=== PATIENT | female | born 1975 | race Hispanic/Latino ===

== ENCOUNTER 2017-02-21 22:44 | Emergency (ER) | payer MEDICARE ==
[2017-02-21 23:00] VITALS: BP 136/79
[2017-02-22] LABS: Bilirubin,Urine NEG (Negative); Blood,Urine SM (Negative); Ketones,Urine NEG (Negative); Leukocyte Esterase,Urine NEG (Negative); Mucus,Urine FEW /HPF; Nitrite,Urine NEG (Negative); Protein,Urine <15 mg/dL mg/dL (Negative); Urobilinogen,Urine < 2.0 mg/dL (<2.0)
--- NOTE | 2017-02-25 00:57 | ED Elopement Review ---
ED Pt Elopement review - Results review Lab results: Laboratory Tests 02/21/17 23:27 Urine Color Straw Urine Turbidity Clear Urine pH 7.0 Ur Specific [place] 1.008 Urine Protein <15 mg/dl Urine Glucose (UA) Neg Urine Ketones Neg Urine Blood Sm Urine Nitrite Neg Ur Reducing Substances Not Reportable Urine Bilirubin Neg Urine Ictotest Not Reportable Urine Urobilinogen < 2.0 Ur Leukocyte Esterase Neg Urine WBC (Auto) 0.0 Urine RBC (Auto) 3.0 U Epithel Cells (Auto) 1.0 Urine Mucus Few Urine HCG, Qual Negative - Call Back decision Pt Call Back Decision: Pt to F/U with PMD
== END 2017-02-22 03:30 | disposition left against medical advice (07) ==
LOC: ED 22:44
DX: N89.8 Other specified noninflammatory disorders of vagina (principal); R10.30 Lower abdominal pain, unspecified; Z53.21 Procedure and treatment not carried out due to patient leaving prior to being seen by health care provider
CPT/HCPCS: 81001; 81025

== ENCOUNTER 2017-02-24 16:06 | Emergency (ER) | payer MEDICARE ==
[2017-02-24 16:14] VITALS: BP 127/84
[2017-02-24 17:11] LABS: Bilirubin,Urine NEG (Negative); Blood,Urine MOD (Negative); Ketones,Urine NEG (Negative); Leukocyte Esterase,Urine NEG (Negative); Mucus,Urine FEW /HPF; Nitrite,Urine NEG (Negative); Protein,Urine <15 mg/dL mg/dL (Negative); Urobilinogen,Urine < 2.0 mg/dL (<2.0); WBC,Urine < 1.0 /HPF (0.0-6.0)
--- NOTE | 2017-02-24 17:47 | Emergency Department Report ---
ED Female HPI - General Chief complaint: Urogenital-Female Stated complaint: VAG DISCHARGE W/ ODOR Source: patient Mode of arrival: Ambulatory Limitations: No Limitations - History of Present Illness Initial comments: Patient reports vaginal discharge with a foul odor for eight days. Also, inquiring about strong pain medications for chronic DJD that triggers headaches , not relieved with NSAIDS. Patient is awaiting an appointment for pain management clinic MD Complaint: vaginal discharge Onset/Timin -: days(s) Location: suprapubic Radiation: non-radiating Severity: severe Severity scale (0 -10): 10 Quality: cramping Consistency: constant Improves with: none Worsens with: intercourse Are you Now?: No Last Menstrual Period: 02/06/17 EDC: 11/13/17 Associated Symptoms: vaginal discharge. denies: vaginal bleeding, abdominal pain, nausea/vomiting, fever/chills, headaches, loss of appetite, dysuria, hematuria, rash, seizure, shortness of breath, syncope, weakness - Related Data Sexually active: No Home Medications Medication Instructions Recorded Confirmed Last Taken Citalopram Hydrobromide [Celexa] 40 mg PO DAILY 06/10/13 06/10/13 06/10/13 11:45 risperiDONE [Risperdal] 2 mg PO QDAY 06/10/13 06/10/13 06/09/13 21:00 Previous Rx's Medication Instructions Recorded Last Taken Type Ibuprofen [Motrin] 800 mg PO TID PRN #20 tablet 08/11/13 Unknown Rx metroNIDAZOLE [Flagyl TAB] 500 mg PO BID #20 tablet 08/11/13 Unknown Rx Fluconazole [Diflucan] 150 mg PO QDAY #1 tablet 12/29/13 Unknown Rx metroNIDAZOLE [Flagyl] 500 mg PO Q12HR #14 tab 02/24/17 Unknown Rx Allergies Allergy/AdvReac Type Severity Reaction Status Date / Time ketorolac tromethamine Allergy Unknown Verified 11/08/13 23:01 [From Toradol] ED Review of Systems ROS: Stated complaint: VAG DISCHARGE W/ ODOR Other details as noted in HPI Constitutional: denies: chills, diaphoresis, fever, malaise Respiratory: denies: cough, orthopnea Cardiovascular: denies: chest pain, palpitations, dyspnea on exertion, orthopnea , edema, syncope, paroxysmal nocturnal dyspnea Gastrointestinal: denies: abdominal pain, nausea, vomiting, diarrhea, constipation, hematemesis, melena, hematochezia Genitourinary: discharge. denies: urgency, dysuria, frequency, hematuria, abnormal menses, dyspareunia Musculoskeletal: back pain. denies: joint swelling, arthralgia Skin: denies: rash, lesions Neurological: denies: headache, weakness, numbness, paresthesias, confusion, abnormal gait Psychiatric: denies: anxiety, depression Hematological/Lymphatic: denies: easy bleeding, easy bruising, swollen glands ED Past Medical Hx - Past Medical History Previous Medical History?: Yes Hx CVA: Yes Hx Kidney Stones: Yes Hx Psychiatric Treatment: Yes (bipolar, schizo,depression, Anxiety) Additional medical history: anemia, - Surgical History Past Surgical History?: Yes Additional Surgical History: cystoscope. left finger surgery. tubal ligation. nose - Social History Smoking Status: Current Every Day Smoker Substance Use Type: Alcohol, Prescribed, Tranquilizers - Medications Home Medications: Home Medications Medication Instructions Recorded Confirmed Last Taken Type Citalopram Hydrobromide [Celexa] 40 mg PO DAILY 06/10/13 06/10/13 06/10/13 11: 45 History risperiDONE [Risperdal] 2 mg PO QDAY 06/10/13 06/10/13 06/09/13 21:00 History Ibuprofen [Motrin] 800 mg PO TID PRN #20 tablet 08/11/13 Unknown Rx metroNIDAZOLE [Flagyl TAB] 500 mg PO BID #20 tablet 08/11/13 Unknown Rx Fluconazole [Diflucan] 150 mg PO QDAY #1 tablet 12/29/13 Unknown Rx metroNIDAZOLE [Flagyl] 500 mg PO Q12HR #14 tab 02/24/17 Unknown Rx ED Physical Exam - General Limitations: No Limitations General appearance: alert, in no apparent distress - Head Head exam: Present: atraumatic, normocephalic - Eye Eye exam: Present: normal appearance - ENT ENT exam: Present: normal exam, normal orophraynx, mucous membranes moist. Absent: mucous membranes dry - Neck Neck exam: Present: normal inspection, full ROM. Absent: tenderness, meningismus, lymphadenopathy, thyromegaly - Respiratory Respiratory exam: Present: normal lung sounds bilaterally. Absent: respiratory distress, wheezes, rales, rhonchi, stridor, chest wall tenderness, accessory muscle use, decreased breath sounds, prolonged expiratory - Cardiovascular Cardiovascular Exam: Present: regular rate, normal rhythm, normal heart sounds. Absent: systolic murmur, diastolic murmur, rubs, gallop - GI/Abdominal GI/Abdominal exam: Present: soft, normal bowel sounds. Absent: distended, tenderness, guarding, rebound, rigid - External exam: Present: normal external exam. Absent: erythema, swelling, lesions, lacerations, ecchymosis, bleeding Speculum exam: Present: erythema, vaginal discharge (creamy ). Absent: cervical discharge, vaginal bleeding, foreign body, tissue, laceration Bi-manual exam: Absent: cervical motion tendernes, adnexal tenderness, adnexal mass, uterine enlargement, uterine tenderness - Extremities Exam Extremities exam: Present: normal inspection, full ROM, normal capillary refill. Absent: tenderness, pedal edema, joint swelling, calf tenderness - Back Exam Back exam: Present: normal inspection, full ROM. Absent: CVA tenderness (R), CVA tenderness (L) - Neurological Exam Neurological exam: Present: alert, oriented X3, CN II-XII intact, normal gait, reflexes normal. Absent: motor sensory deficit - Psychiatric Psychiatric exam: Present: normal affect, normal mood - Skin Skin exam: Present: warm, dry, intact, normal color. Absent: rash ED Course Vital Signs 02/24/17 16:10 Temperature 98.1 F Pulse Rate 86 Respiratory 20 Rate Blood Pressure 127/84 O2 Sat by Pulse 96 Oximetry ED Medical Decision Making - Lab Data Lab Results 02/24/17 Range/Units 16:34 Urine Color Yellow (Yellow) Urine Turbidity Clear (Clear) Urine pH 6.0 (5.0-7.0) Ur Specific [place] 1.011 (1.003-1.030) Urine Protein <15 mg/dl (Negative) mg/dL Urine Glucose (UA) Neg (Negative) mg/dL Urine Ketones Neg (Negative) mg/dL Urine Blood Mod (Negative) Urine Nitrite Neg (Negative) Urine Bilirubin Neg (Negative) Urine Urobilinogen < 2.0 (<2.0) mg/dL Ur Leukocyte Esterase Neg (Negative) Urine WBC (Auto) < 1.0 (0.0-6.0) /HPF Urine RBC (Auto) 2.0 (0.0-6.0) /HPF U Epithel Cells (Auto) 2.0 (0-13.0) /HPF Urine Mucus Few /HPF Urine HCG, Qual Negative (Negative) Microbiology 02/24/17 16:34 Cervix Wet Prep - Final No Clue Cells Seen No Yeast Seen No Trichomoniasis Seen - Medical Decision Making During the course of ED, laboratory studies were ordered. Patient was sent home with a prescription for Flagyl, instructed to follow up at the pain clinic for stronger pain management related to DJD. She verbalized understanding - Differential Diagnosis Vaginitis, UTI, STIs' Critical care attestation.: If time is entered above; I have spent that time in minutes in the direct care of this critically ill patient, excluding procedure time. ED Disposition Clinical Impression: Vaginitis Qualifiers: Chronicity: acute Qualified Code(s): N76.0 - Acute vaginitis Disposition: TO HOME OR SELFCARE Is pt being admited?: No Does the pt Need Aspirin: No Condition: Stable Instructions: Vaginitis (ED) Additional Instructions: Take medication as directed. Follow up with the [facility] Prescriptions: metroNIDAZOLE [Flagyl] 500 mg PO Q12HR #14 tab Referrals: PRIMARY CARE, [Primary Care Provider] - 3-5 Days INOCENTE MANDUJANO CNM [Advanced Practice Nurse] - 3-5 Days JACEK ESCAMILLA DO [Staff Physician] - 3-5 Days MARISOL SHERMAN CNM [Advanced Practice Nurse] - 3-5 Days Forms: Work/School Release Form(ED) Time of Disposition: 17:44
== END 2017-02-24 17:50 | disposition home or self-care (01) ==
LOC: ED 16:06
DX: N76.0 Acute vaginitis (principal); F31.9 Bipolar disorder, unspecified; F20.9 Schizophrenia, unspecified; F17.200 Nicotine dependence, unspecified, uncomplicated; Z86.73 Personal history of transient ischemic attack (TIA), and cerebral infarction without residual deficits
CPT/HCPCS: 81001; 81025; 87210; 87591; 99284

== ENCOUNTER 2017-12-16 21:39 | Emergency (ER) | payer MEDICARE ==
[2017-12-16 21:49] VITALS: BP 138/76
[2017-12-16] MEDS ORDERED: ASPIRIN PO ONE (21:49)
[2017-12-16 22:11] LABS: Hematocrit 42.9 % (30.3-42.9); Hemoglobin 14.2 gm/dl (10.1-14.3); Mean Corpuscular HGB Conc 33 % (30-34); Mean Corpuscular Hemoglobin 30 pg (28-32); Mean Corpuscular Volume 89 fl (79-97); Platelet Count 261 K/mm3 (140-440); Red Blood Count 4.82 M/mm3 (3.65-5.03); Red Cell Distribution Width 13.8 % (13.2-15.2)
[2017-12-16 22:38] LABS: BUN/Creatinine Ratio 15; Blood Urea Nitrogen 15 mg/dL (7-17); Calcium 9.8 mg/dL (8.4-10.2); Hemolysis Index 64
[2017-12-17 02:05] LABS: Eosinophils % (Manual) 0 % (0.0-4.3); Total Cells Counted 100
[2017-12-17 02:06] LABS: Large Platelets Rare; RBC Morphology Normal
== END 2017-12-17 03:15 | disposition left against medical advice (07) ==
LOC: ED 21:39
DX: R07.9 Chest pain, unspecified (principal); M79.604 Pain in right leg; Z53.21 Procedure and treatment not carried out due to patient leaving prior to being seen by health care provider
CPT/HCPCS: 36415; 80048; 84484; 85007; 85025; 93005; 93010

== ENCOUNTER 2018-11-01 06:47 | Emergency (ER) | payer MEDICARE | END 2018-11-01 07:20 | disposition left against medical advice (07) | LOC: ED 06:47 | DX: R07.89 Other chest pain (principal); Z53.21 Procedure and treatment not carried out due to patient leaving prior to being seen by health care provider | CPT/HCPCS: 93005; 93010 ==

== ENCOUNTER 2018-12-27 18:49 | Emergency (ER) | payer MEDICARE ==
[2018-12-27 19:33] VITALS: BP 129/75
--- NOTE | 2018-12-27 21:07 | XRay Report ---
PROCEDURE: XR CHEST ROUTINE 2V HISTORY: cough and congestion FINDINGS: Frontal and lateral views the chest were acquired. The heart is normal in size. The lungs appear rupali r. The pleura and mediastinum are within normal limits. IMPRESSION: No active disease in the chest This document is electronically signed by Dedrick Hatch MD., December 27 2018 09:05:00 PM ET
--- NOTE | 2018-12-27 21:30 | Emergency Department Report ---
Minor Respiratory - HPI Chief Complaint: Upper Respiratory Infection Stated Complaint: COUGH/SORE THROAT/FEVER Time Seen by Provider: 12/27/18 21:26 Duration: 3 Days Pain Location: Throat Severity: severe Minor Respiratory: Yes Sore Throat, Yes Cough, No Rhinorrhea, No Able to Tolerate Fluids, No Ear Pain, No Sick Contacts, No Hemoptysis, No Chest Pain, No Shortness of Breath, No Fever ED Review of Systems ROS: Stated complaint: COUGH/SORE THROAT/FEVER Other details as noted in HPI Constitutional: denies: chills, fever ENT: throat pain. denies: ear pain Respiratory: cough. denies: shortness of breath, wheezing Cardiovascular: denies: chest pain, palpitations Gastrointestinal: denies: abdominal pain, nausea, diarrhea Skin: denies: rash, lesions Neurological: denies: headache, weakness, paresthesias Psychiatric: denies: anxiety, depression ED Past Medical Hx - Past Medical History Hx Hypertension: No Hx CVA: Yes Hx Congestive Heart Failure: No Hx Diabetes: No Hx Renal Disease: Yes (kidney reflux; h/o kidney stones) Hx Sickle Cell Disease: No Hx Headaches / Migraines: Yes Hx Kidney Stones: Yes Hx Psychiatric Treatment: Yes (bipolar, schizo,depression, Anxiety) Hx Asthma: No Hx COPD: No Hx HIV: No Additional medical history: anemia, - Surgical History Additional Surgical History: cystoscope. left finger surgery. tubal ligation. nose. Hysterectomy - Social History Smoking Status: Current Every Day Smoker Substance Use Type: None - Medications Home Medications: Home Medications Medication Instructions Recorded Confirmed Last Taken Type ALPRAZolam [Xanax TAB] 1 mg PO BID 05/08/17 05/15/17 05/14/17 History Lurasidone HCl [Latuda] 60 mg PO DAILY 05/08/17 05/15/17 05/14/17 History Ibuprofen [Motrin] 800 mg PO Q8HR PRN #60 tablet 05/16/17 Unknown Rx Oxycodone HCl/Acetaminophen 1 each PO Q6HR PRN #45 tablet 05/16/17 Unknown Rx [Percocet 10/325 mg] Penicillin V Potassium 500 mg PO BID #20 tablet 12/27/18 Unknown Rx methylPREDNISolone [Medrol] 4 mg PO DAILY #1 tab.ds.pk 12/27/18 Unknown Rx Minor Respiratory Exam - Exam General: Vital signs noted. No distress. Alert and acting appropriately. HEENT: Yes Pharyngeal Erythema (erythematous posterior pharynx, bulging tonsils without exudate uvula midline), Yes Moist Mucous Membranes, Yes Rhinorrhea (turbinates mildly congested with clear discharge), No Pharyngeal Exudates, No Conjuctival Injection, No Frontal Tenderness, No Maxillary Tenderness Ear: Neither TM Bulge, Neither TM Erythema, Neither EAC Pain, Neither EAC Discharge Neck: Yes Supple, No Adenopathy Lungs: Yes Good Air Exchange, Yes Cough, No Wheezes, No Ronchi, No Stridor, No Labored Respirations, No Retractions, No Use of Accessory Muscles, No Other Abnormal Lung Sounds Heart: Yes Regular, No Murmur Abdomen: Yes Normal Bowel Sounds, No Tenderness, No Peritoneal Signs Skin: No Rash, No Edema Neurologic: Alert and oriented, no deficits. Musculoskeletal: Unremarkable. ED Course Vital Signs 12/27/18 12/27/18 19:12 19:30 Temperature 98.7 F 98.7 F Pulse Rate 112 H 112 H Respiratory 18 18 Rate Blood Pressure 129/75 129/75 O2 Sat by Pulse 94 96 Oximetry ED Medical Decision Making - Lab Data Lab Results 12/27/18 Range/Units Unknown Group A Strep Rapid Negative (Negative) - Medical Decision Making Patient examined by me and stable. No distress noted. Rapid strep obtained and negative. Vitals stable. Findings are acute Pharyngitis. Start penicillin V 500 mg po bid x 10 days and Medrol Dosepak. Take Tylenol or ibuprofen for pain. Discussed plan with patient and he agreed with plan to treat outpatient. Discharged home. Return to work tomorrow. Follow up with PCP in 48-72 hours. Critical care attestation.: If time is entered above; I have spent that time in minutes in the direct care of this critically ill patient, excluding procedure time. ED Disposition Clinical Impression: Acute sore throat Pharyngitis Qualifiers: Pharyngitis/tonsillitis etiology: unspecified etiology Qualified Code(s): J02.9 - Acute pharyngitis, unspecified Disposition: - TO HOME OR SELFCARE Is pt being admited?: No Does the pt Need Aspirin: No Condition: Stable Instructions: Pharyngitis (ED) Additional Instructions: Expect symptoms to improve within 3 or 4 days. There is no need for bed rest or isolation. Use Tylenol or ibuprofen for symptoms of sore throat, headache, and fever. Return to work in 24 hours of taking antibiotics. Follow up with Primary Care Provider in 48-72 hours. Prescriptions: methylPREDNISolone [Medrol] 4 mg PO DAILY #1 tab.ds.pk Penicillin V Potassium 500 mg PO BID #20 tablet Referrals: PATTI GALVEZ MD [Primary Care Provider] - 3-5 Days
[2018-12-27] MEDS ORDERED: TYLENOL #3 PO ONE (21:49)
[2018-12-27] MEDS ORDERED: DECADRON IM ONE (21:49)
[2018-12-27] MEDS ORDERED: PROVENTIL IH ONE (21:49)
--- NOTE | 2018-12-27 23:32 | Emergency Department Report ---
- General Chief Complaint: Upper Respiratory Infection Stated Complaint: COUGH/SORE THROAT/FEVER Time Seen by Provider: 12/27/18 21:26 Source: patient Mode of arrival: Ambulatory Limitations: No Limitations - History of Present Illness Initial Comments: There is a 43-year-old white female who presents for cough productive yellow green nocturnal wheezing patient states symptoms are worse at night. Symptoms are trigged by environmental exposure symptoms relieved by nothing pt is a 20 pack yr smoker , there is no cp no n/v no fever at this time. MD Complaint: fever, cough, sore throat, rhinorrhea, nasal congestion, sinus pain Onset/Timin -: week(s) Severity: moderate Severity scale (0 -10): 4 Quality: sharp Consistency: intermittent Improves With: nothing Worsens With: other (environmental exposure ) Context: sick contacts Associated Symptoms: fever, chills, rhinorrhea, nasal congestion, sore throat, cough Treatments Prior to Arrival: none - Related Data Home Medications Medication Instructions Recorded Confirmed Last Taken ALPRAZolam [Xanax TAB] 1 mg PO BID 05/08/17 05/15/17 05/14/17 Lurasidone HCl [Latuda] 60 mg PO DAILY 05/08/17 05/15/17 05/14/17 Previous Rx's Medication Instructions Recorded Last Taken Type Oxycodone HCl/Acetaminophen 1 each PO Q6HR PRN #45 tablet 05/16/17 Unknown Rx [Percocet 10/325 mg] ALBUTEROL Inhaler(NF) [VENTOLIN 2 puff IH Q4H PRN #1 inha 12/27/18 Unknown Rx Inhaler(NF)] Acetaminophen [Tylenol Extra 1,000 mg PO QID PRN #30 tablet 12/27/18 Unknown Rx Strength] Azithromycin [Zithromax Z-ANTONY] 250 mg PO DAILY #6 tab 12/27/18 Unknown Rx Benzonatate [Tessalon Perles] 100 mg PO Q8HR PRN #30 capsule 12/27/18 Unknown Rx predniSONE [Deltasone] 40 mg PO QDAY 5 Days #10 tab 12/27/18 Unknown Rx Allergies Allergy/AdvReac Type Severity Reaction Status Date / Time ketorolac tromethamine Allergy Unknown Verified 12/27/18 18:52 [From Toradol] ED Review of Systems ROS: Stated complaint: COUGH/SORE THROAT/FEVER Other details as noted in HPI Constitutional: fever. denies: chills Eyes: denies: eye pain, eye discharge, vision change ENT: throat pain, congestion. denies: ear pain Respiratory: cough, wheezing Cardiovascular: denies: chest pain, palpitations Endocrine: no symptoms reported Gastrointestinal: denies: abdominal pain, nausea, diarrhea Genitourinary: as per HPI Musculoskeletal: denies: back pain, joint swelling, arthralgia Skin: denies: rash, lesions Neurological: denies: headache, weakness, paresthesias Psychiatric: denies: anxiety, depression Hematological/Lymphatic: denies: easy bleeding, easy bruising ED Past Medical Hx - Past Medical History Hx Hypertension: No Hx CVA: Yes Hx Congestive Heart Failure: No Hx Diabetes: No Hx Renal Disease: Yes (kidney reflux; h/o kidney stones) Hx Sickle Cell Disease: No Hx Headaches / Migraines: Yes Hx Kidney Stones: Yes Hx Psychiatric Treatment: Yes (bipolar, schizo,depression, Anxiety) Hx Asthma: No Hx COPD: No Hx HIV: No Additional medical history: anemia, - Surgical History Additional Surgical History: cystoscope. left finger surgery. tubal ligation. nose. Hysterectomy - Social History Smoking Status: Current Every Day Smoker Substance Use Type: None - Medications Home Medications: Home Medications Medication Instructions Recorded Confirmed Last Taken Type ALPRAZolam [Xanax TAB] 1 mg PO BID 05/08/17 05/15/17 05/14/17 History Lurasidone HCl [Latuda] 60 mg PO DAILY 05/08/17 05/15/17 05/14/17 History Oxycodone HCl/Acetaminophen 1 each PO Q6HR PRN #45 tablet 05/16/17 Unknown Rx [Percocet 10/325 mg] ALBUTEROL Inhaler(NF) [VENTOLIN 2 puff IH Q4H PRN #1 inha 12/27/18 Unknown Rx Inhaler(NF)] Acetaminophen [Tylenol Extra 1,000 mg PO QID PRN #30 tablet 12/27/18 Unknown Rx Strength] Azithromycin [Zithromax Z-ANTONY] 250 mg PO DAILY #6 tab 12/27/18 Unknown Rx Benzonatate [Tessalon Perles] 100 mg PO Q8HR PRN #30 capsule 12/27/18 Unknown Rx predniSONE [Deltasone] 40 mg PO QDAY 5 Days #10 tab 12/27/18 Unknown Rx ED Physical Exam - General Limitations: No Limitations General appearance: alert, in no apparent distress - Head Head exam: Present: atraumatic, normocephalic - Eye Eye exam: Present: normal appearance, PERRL, EOMI Pupils: Present: normal accommodation - ENT ENT exam: Present: normal exam, mucous membranes moist, TM's normal bilaterally, normal external ear exam - Expanded ENT Exam Expanded Throat exam: Positive: tonsillar erythema, tonsillomegaly, other (uvula midline no exudate no lesion no stridor airway is patent ). Negative: tonsillar exudate, R peritonsillar mass, L peritonsillar mass - Neck Neck exam: Present: normal inspection, full ROM. Absent: tenderness, meningismus, lymphadenopathy, thyromegaly - Respiratory Respiratory exam: Present: normal lung sounds bilaterally, wheezes. Absent: respiratory distress, stridor, chest wall tenderness - Cardiovascular Cardiovascular Exam: Present: regular rate, normal rhythm, normal heart sounds. Absent: systolic murmur, diastolic murmur, rubs, gallop - GI/Abdominal GI/Abdominal exam: Present: soft, normal bowel sounds - Rectal Rectal exam: Present: deferred - Extremities Exam Extremities exam: Present: normal inspection - Back Exam Back exam: Present: normal inspection, full ROM. Absent: tenderness, CVA tenderness (R), CVA tenderness (L), rash noted - Neurological Exam Neurological exam: Present: alert, oriented X3, CN II-XII intact, normal gait, reflexes normal - Psychiatric Psychiatric exam: Present: normal affect, normal mood - Skin Skin exam: Present: warm, dry, intact, normal color. Absent: rash ED Course Vital Signs 12/27/18 12/27/18 12/27/18 19:12 19:30 22:07 Temperature 98.7 F 98.7 F Pulse Rate 112 H 112 H Pulse Rate [ Anterior Bilateral Throughout] Respiratory 18 18 15 Rate Respiratory Rate [Anterior Bilateral Throughout] Blood Pressure 129/75 129/75 O2 Sat by Pulse 94 96 Oximetry 12/27/18 12/27/18 22:14 22:36 Temperature Pulse Rate Pulse Rate [ 111 H 110 H Anterior Bilateral Throughout] Respiratory Rate Respiratory 16 16 Rate [Anterior Bilateral Throughout] Blood Pressure O2 Sat by Pulse Oximetry ED Medical Decision Making - Radiology Data Radiology results: report reviewed, image reviewed Patient: KIMMIE HERNANDEZ MR#: [id number] : 1975 Acct:[id number] Age/Sex: 43 / F ADM Date: 12/27/18 Loc: ED Attending Dr: Ordering Physician: YAMILE ARANGO MD Date of Service: 12/27/18 Procedure(s): XR chest routine 2V Accession Number(s): [id number] cc: YAMILE ARANGO MD Fluoro Time In Minutes: PROCEDURE: XR CHEST ROUTINE 2V HISTORY: cough and congestion FINDINGS: Frontal and lateral views the chest were acquired. The heart is normal in size. The lungs appear clear. The pleura and mediastinum are within normal limits. IMPRESSION: No active disease in the chest This document is electronically signed by Dedrick Hatch MD., December 27 2018 09:05:00 PM ET Transcribed By: RAJESH Dictated By: DEDRICK HATCH MD Electronically Authenticated By: DEDRICK HATCH MD Signed Date/Time: 12/27/182106 DD/ 51 TD/TT: 12/27/181951 - Medical Decision Making symptoms are improved pt is now ambulatory in ed without increased sob no dizziness no light headness no n/v cxr: normal no infiltrates no opacities, plan: albuterol, prednisone, ibuprofen, tessalon pearls, follow up with pcp in 2-3 days , pt verbalized agreement and understanding of same. pt dc'd to home in stable condition. Critical care attestation.: If time is entered above; I have spent that time in minutes in the direct care of this critically ill patient, excluding procedure time. ED Disposition Clinical Impression: Bronchitis URI (upper respiratory infection) Qualifiers: URI type: unspecified viral URI Qualified Code(s): J06.9 - Acute upper respiratory infection, unspecified Pharyngitis Qualifiers: Pharyngitis/tonsillitis etiology: unspecified etiology Qualified Code(s): J02.9 - Acute pharyngitis, unspecified Disposition: DC-01 TO HOME OR SELFCARE Is pt being admited?: No Does the pt Need Aspirin: No Condition: Stable Instructions: Pharyngitis (ED), Acute Bronchitis (ED) Additional Instructions: Expect symptoms to improve within 3 or 4 days. There is no need for bed rest or isolation. Use Tylenol or ibuprofen for symptoms of sore throat, headache, and fever. Return to work in 24 hours of taking antibiotics. Follow up with Primary Care Provider in 48-72 hours. Prescriptions: predniSONE [Deltasone] 40 mg PO QDAY 5 Days #10 tab Benzonatate [Tessalon Perles] 100 mg PO Q8HR PRN #30 capsule PRN Reason: Cough Acetaminophen [Tylenol Extra Strength] 1,000 mg PO QID PRN #30 tablet PRN Reason: pain ALBUTEROL Inhaler(NF) [VENTOLIN Inhaler(NF)] 2 puff IH Q4H PRN #1 inha PRN Reason: shortness of breath wheezing Azithromycin [Zithromax Z-ANTONY] 250 mg PO DAILY #6 tab Referrals: [facility] [Outside] - 3-5 Days [facility] [Outside] - 3-5 Days JASPER PATTI GUDINO MD [Primary Care Provider] - 3-5 Days Forms: Work/School Release Form(ED) Time of Disposition: 23:45
== END 2018-12-27 23:57 | disposition home or self-care (01) ==
LOC: ED 18:49
DX: J40 Bronchitis, not specified as acute or chronic (principal); J06.9 Acute upper respiratory infection, unspecified; J02.9 Acute pharyngitis, unspecified; I10 Essential (primary) hypertension; Z86.73 Personal history of transient ischemic attack (TIA), and cerebral infarction without residual deficits; G43.909 Migraine, unspecified, not intractable, without status migrainosus; F31.9 Bipolar disorder, unspecified; F20.9 Schizophrenia, unspecified; F17.200 Nicotine dependence, unspecified, uncomplicated
CPT/HCPCS: 71046; 87116; 87430; 94640; 96372; 99284; J1100

== ENCOUNTER 2019-04-30 10:02 | Emergency (ER) | payer MEDICARE ==
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
[2019-04-30 12:26] VITALS: BP 135/77
== END 2019-04-30 11:54 | disposition home or self-care (01) ==
LOC: ED 10:02
DX: M54.9 Dorsalgia, unspecified (principal); G89.29 Other chronic pain; G43.909 Migraine, unspecified, not intractable, without status migrainosus; F31.9 Bipolar disorder, unspecified; F20.9 Schizophrenia, unspecified; F17.200 Nicotine dependence, unspecified, uncomplicated; F12.10 Cannabis abuse, uncomplicated
CPT/HCPCS: 99281

== ENCOUNTER 2019-06-30 02:48 | Emergency (ER) | payer MEDICARE ==
[2019-06-30 02:57] VITALS: BP 120/76
[2019-06-30 03:36] LABS: Basophils # (Auto) 0.1 K/mm3 (0.0-0.1); Basophils % (Auto) 1.5 % (0.0-1.8); Eosinophils # (Auto) 0.4 K/mm3 (0.0-0.4); Hematocrit 41.3 % (30.3-42.9); Hemoglobin 14.1 gm/dl (10.1-14.3); Lymphocytes % (Auto) 33.5 % (13.4-35.0); Mean Corpuscular HGB Conc 34 % (30-34); Mean Corpuscular Volume 90 fl (79-97); Monocytes # (Auto) 0.5 K/mm3 (0.0-0.8); Monocytes % (Auto) 5.9 % (0.0-7.3); Platelet Count 238 K/mm3 (140-440); Red Cell Distribution Width 14.3 % (13.2-15.2)
[2019-06-30 03:50] LABS: Alanine Aminotransferase 23 units/L (7-56); Albumin 4.2 g/dL (3.9-5); BUN/Creatinine Ratio 10; Blood Urea Nitrogen 9 mg/dL (7-17); Calcium 9.4 mg/dL (8.4-10.2); Hemolysis Index 17
[2019-06-30 04:46] LABS: Bacteria,Urine 1+ /HPF (Negative); Bilirubin,Urine NEG (Negative); Blood,Urine MOD (Negative); Color,Urine Yellow (Yellow); Mucus,Urine FEW /HPF; Protein,Urine <15 mg/dL mg/dL (Negative); Urobilinogen,Urine < 2.0 mg/dL (<2.0); WBC,Urine < 1.0 /HPF (0.0-6.0)
[2019-06-30] MEDS ORDERED: NORCO 5/325 ONE (06:34)
[2019-06-30] MEDS ORDERED: ZOFRAN ODT ONE (06:34)
[2019-06-30] MEDS ORDERED: FLEXERIL PO ONE (06:34)
[2019-06-30] MEDS ORDERED: FLEXERIL ONE (06:34)
[2019-06-30] MEDS ORDERED: ZOFRAN ODT PO ONE (06:34)
[2019-06-30] MEDS ORDERED: NORCO 5/325 PO ONE (06:34)
== END 2019-06-30 07:45 | disposition left against medical advice (07) ==
LOC: ED 02:48
DX: M54.2 Cervicalgia (principal); Z53.21 Procedure and treatment not carried out due to patient leaving prior to being seen by health care provider
CPT/HCPCS: 36415; 80053; 81001; 85025; Q0162

== ENCOUNTER 2020-05-03 08:45 | Emergency (ER) | payer MEDICARE ==
[2020-05-03] MEDS ORDERED: MORPHINE 2 MG/1 ML INJ IV ONE (09:19)
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
[2020-05-03] MEDS ORDERED: oxyCODONE /ACETAMINOPHEN 5-325MG TAB PO ONE (10:54)
[2020-05-03] MEDS ORDERED: ONDANSETRON 4 MG ODT TAB PO ONE (11:05)
--- NOTE | 2020-05-03 11:11 | Cat Scan Report ---
CT cervical spine wo con INDICATION / CLINICAL INFORMATION: 45 years Female; fall, pain. TECHNIQUE: Axial CT images of the cervical spine were obtained. Sagittal and coronal reformatted images were pr oduced. All CT scans at this location are performed using CT dose reduction for ALARA by means of aut omated exposure control. COMPARISON: None available. FINDINGS: POST-SURGICAL CHANGES: None. ALIGNMENT: There is no significant spondylolisthesis involving cervical spine. VERTEBRAE: There are focal endplate changes anteriorly at C5-6 and C6-7. There is no clear CT evidenc e of acute fracture involving the cervical spine. INTRAVERTEBRAL DISCS: The facet and uncovertebral joint hypertrophy at C3-4 results in moderate right and mild left neural foraminal narrowing. There is prominent left facet joint hypertrophy at C4-5 wi th marked left neural foraminal narrowing. There appear to be slight disc bulges at C5-6 and C6-[address] evidence of significant bony spinal stenosis. There is mild right facet joint hypertrophy and foraminal narrowing at C7-T1. PARASPINAL SOFT TISSUES: No prevertebral soft tissue fluid collections are identified. ADDITIONAL FINDINGS: None. IMPRESSION: 1. There is no CT evidence of acute fracture involving the cervical spine. 2. There are multilevel degenerative changes as detailed above. Signer Name: Christian Mims MD Signed: 05/03/2020 10:12 AM Workstation Name: [id number]
--- NOTE | 2020-05-03 11:11 | Cat Scan Report ---
CT head/brain wo con INDICATION: Fall today. TECHNIQUE: Routine CT head. All CT scans at this location are performed using CT dose reduction for A ELIO by means of automated exposure control. COMPARISON: None. FINDINGS: Intracranial: Antonio-white matter differentiation is maintained. No intracranial hemorrhage. No extra a xial collection.. No hydrocephalus. No herniation. Sinuses: Mild mucosal thickening throughout the maxillary sinuses, ethmoid air cells, and complete op acification of the left frontal sinus. Mastoid air cells are well-aerated.. Orbits: Globes are intact. Calvarium: No acute fracture. Incidental note is piercing is noted. IMPRESSION: 1. No calvarial fracture or acute intracranial hemorrhage. Signer Name: Gavin Marquez MD Signed: 05/03/2020 9:47 AM Workstation Name: [id number]
--- NOTE | 2020-05-03 11:11 | Cat Scan Report ---
CT PELVIS WITHOUT CONTRAST INDICATION / CLINICAL INFORMATION: fall, pain. TECHNIQUE: Axial CT images were obtained through the pelvis without contrast. All CT scans at this location are performed using CT dose reduction for ALARA by means of automated exposure control. COMPARISON: None available. FINDINGS: BONES: No fracture. No osseous lesion. HIP JOINTS: No significant abnormality. SACROILIAC JOINTS: No significant abnormality. SOFT TISSUES: No significant abnormality. LOWER LUMBAR SPINE: No significant abnormality. SOFT TISSUES WITHIN PELVIS: No acute findings. ADDITIONAL FINDINGS: None. IMPRESSION: 1. No significant abnormality. Signer Name: Sunday Pagan MD Signed: 05/03/2020 10:16 AM Workstation Name: [email or web address]
--- NOTE | 2020-05-03 11:11 | Cat Scan Report ---
CT lumbar spine wo con INDICATION / CLINICAL INFORMATION: 45 years Female; fall, pain. TECHNIQUE: Axial CT images of the lumbar spine were obtained after administration of intrathecal contrast. Sagi ttal and coronal reformatted images were produced. All CT scans at this location are performed using CT dose reduction for ALARA by means of automated exposure control. COMPARISON: None available. FINDINGS: POST-SURGICAL CHANGES: None. ALIGNMENT: There is minimal retrolisthesis at L4-identified. There is no significant lumbar scoliosis . VERTEBRAE: There is no CT evidence of acute compression fracture involving the lumbar spine. INTERVERTEBRAL DISCS: The disc bulge at L4-5 appears to slightly flatten the ventral thecal sac. The bulges asymmetric toward the left with mild to moderate left neural foraminal narrowing. The disc bul ge at L3-4 appears to minimally flatten the ventral thecal sac. There is no clear CT evidence of sign ificant stenosis involving remaining lumbar segments. PARASPINAL SOFT TISSUES: No significant abnormality. ADDITIONAL FINDINGS: None. IMPRESSION: 1. There is no CT evidence of acute fracture involving lumbar spine. 2. There is minimal retrolisthesis at L4-5 with left-sided disc bulge which results in mild to modera te left neural foraminal narrowing. Signer Name: Christian Mims MD Signed: 05/03/2020 10:15 AM Workstation Name: [id number]
[2020-05-03 12:11] VITALS: BP 127/54
== END 2020-05-03 12:11 | disposition home or self-care (01) ==
LOC: ED 08:45
DX: S09.90XA Unspecified injury of head, initial encounter (principal); S16.1XXA Strain of muscle, fascia and tendon at neck level, initial encounter; S39.012A Strain of muscle, fascia and tendon of lower back, initial encounter; G43.909 Migraine, unspecified, not intractable, without status migrainosus; F20.9 Schizophrenia, unspecified; I10 Essential (primary) hypertension; Z86.73 Personal history of transient ischemic attack (TIA), and cerebral infarction without residual deficits; Z87.442 Personal history of urinary calculi; F17.200 Nicotine dependence, unspecified, uncomplicated; Z90.710 Acquired absence of both cervix and uterus; Z98.51 Tubal ligation status; Z98.890 Other specified postprocedural states; Z79.2 Long term (current) use of antibiotics; Z79.899 Other long term (current) drug therapy; Z88.8 Allergy status to other drugs, medicaments and biological substances; W17.89XA Other fall from one level to another, initial encounter; Y93.89 Activity, other specified; Y92.89 Other specified places as the place of occurrence of the external cause; Y99.8 Other external cause status
CPT/HCPCS: 70450; 72125; 72131; 72192; 96374; 99284; J2270; Q0162